=== PATIENT | female | born 1975 | race African-American/Black ===

== ENCOUNTER 2017-05-04 08:45 | Outpatient (CLI) | payer MEDICAID | END 2017-05-04 08:46 | disposition home or self-care (01) | LOC: BICMAMMO 08:45 | PROVIDERS: ATTEND Internal Medicine | DX: Z12.31 Encounter for screening mammogram for malignant neoplasm of breast (principal) | CPT/HCPCS: 77067 ==

== ENCOUNTER 2022-02-27 09:53 | Inpatient (IN) | payer BC, MEDICAID ==
[2022-02-27 10:28] LABS: #Lymphocytes 1.9 thou/uL (1.20-3.40); #Neutrophils 5.9 thou/uL (1.40-6.50); %Basophils 0.2 % (0.0-1.0); %Eosinophils 0.2 % (0.0-10.0); %Lymphocytes 21.8 % (21.0-51.0); %Monocytes 11.1 % (0.0-10.0); %Neutrophils 66.6 % (42.0-75.0); Hemoglobin 15.4 g/dL (12.0-16.0); Mean Corpuscular HGB CONC 33.4 g/dL (32.0-36.0); Mean Corpuscular Hemoglobin 35.7 pg (27.0-31.0); Mean Platelet Volume 7.7 fL (7.4-10.4); Platelet Count 256 10x3/uL (130-400); RBC Distribution Width 12.2 % (11.5-14.5); Red Blood Cell (RBC) Count 4.33 mill/uL (4.20-5.40); White Blood Cell (WBC) Count 8.9 10x3/uL (4.8-10.8)
[2022-02-27 10:49] LABS: ALT (SGPT) 22 U/L (8-55); AST (SGOT) 44 U/L (5-34); Albumin 3.9 g/dL (3.5-5.0); Alkaline Phosphatase 93 U/L (40-110); Anion Gap 14 mmol/L (10-20); BUN (Urea Nitrogen) 5 mg/dL (7.0-18.7); Bilirubin, Total 0.9 mg/dL (0.2-1.2); Calc. Creatinine Clearance 0 mL/min (70-130); Calcium 9.2 mg/dL (7.8-10.44); Carbon Dioxide 27 mmol/L (22-29); Chloride 100 mmol/L (98-107); Estimated GFR 89; Globulin 4.1 g/dL (2.4-3.5); Glucose 106 mg/dL (70-105); Potassium 3.5 mmol/L (3.5-5.1); Sodium 137 mmol/L (136-145)
[2022-02-27] MEDS ORDERED: Iopamidol-370 76% 500 ML 1 ML ONE (10:57)
[2022-02-27] MEDS ORDERED: Acetaminophen 325 MG TAB ONE (11:08)
[2022-02-27] MEDS ORDERED: cefTRIAXone\\ROCEPHIN 2 GM VIAL ONE (11:08)
[2022-02-27 11:11] LABS: MDiff Complete? YES; Macrocytosis MODERATE=16-30 cells (100X) (0-5/hpf); Platelet Morphology Comment Appears Adequate
[2022-02-27] MEDS ORDERED: Azithromycin 500 MG VIAL ONE (12:39)
[2022-02-27] MEDS ORDERED: Guaifenesin DM 100-10/5 ML UDCUP PO PRN (13:30)
[2022-02-27] MEDS ORDERED: Ondansetron PF 4 MG/2 ML Vial IVP PRN (13:32)
[2022-02-27] MEDS ORDERED: Acetaminophen 325 MG TAB PO PRN (13:32)
[2022-02-27] MEDS ORDERED: Acetaminophen 500 MG TAB PO PRN (13:34)
[2022-02-27] MEDS ORDERED: Lidocaine 5% Patch TD SCH (13:45)
[2022-02-27] MEDS ORDERED: Nicotine 14 MG PATCH ONE (14:57)
[2022-02-27] MEDS: Nicotine 14 MG PATCH TD SCH (15:05)
[2022-02-27 17:18] VITALS: BMI 23.6
[2022-02-27 19:21] LABS: HIV (1/2) Antibody/Antigen Non-Reactive (NonReactive); HIV 1/2 INDEX 0.13 S/CO (<1.00)
[2022-02-27] MEDS: Famotidine 20 MG TAB PO SCH (21:18)
[2022-02-27] MEDS: Transdermal Patch Removal TOP SCH (21:23)
[2022-02-27] MEDS: Acetaminophen 325 MG TAB PO PRN (21:28)
[2022-02-27] MEDS ORDERED: Lisinopril 10 MG TAB PO SCH (22:00)
[2022-02-27] MEDS ORDERED: Amlodipine 10 MG TAB PO SCH (22:00)
[2022-02-27] MEDS: Melatonin 3 MG TAB PO PRN (22:27)
[2022-02-28 00:20] LABS: Bacteria/HPF None Seen HPF (None Seen); Bilirubin Negative (Negative); Blood, Urine Negative (Negative); Clarity Clear (Clear); Glucose, Urine (Dipstick) Normal (Negative); Ketone, Urine 10 mg/dL (Negative); Leukocyte 75 Leu/uL (Negative); Nitrite Negative (Negative); Protein, Urine (Dipstick) Negative (Neg-Trace); RBC/HPF 0-3 HPF (0-3); Specific Gravity, Urine 1.015 (1.002-1.036); Urobilinogen Normal mg/dL (Less than 2)
[2022-02-28] MEDS: Acetaminophen 325 MG TAB PO PRN ×2 (04:53→21:35)
[2022-02-28 07:30] LABS: Mean Corpuscular HGB CONC 34.2 g/dL (32.0-36.0); Mean Corpuscular Hemoglobin 36.2 pg (27.0-31.0); Mean Platelet Volume 8.2 fL (7.4-10.4); Platelet Count 232 10x3/uL (130-400); RBC Distribution Width 12.2 % (11.5-14.5); Red Blood Cell (RBC) Count 4.44 mill/uL (4.20-5.40)
[2022-02-28 07:32] LABS: Anion Gap 15 mmol/L (10-20); BUN (Urea Nitrogen) Less than 4 mg/dL (7.0-18.7); Calc. Creatinine Clearance 99 mL/min (70-130); Calcium 9.1 mg/dL (7.8-10.44); Carbon Dioxide 24 mmol/L (22-29); Chloride 100 mmol/L (98-107); Estimated GFR 108; Glucose 143 mg/dL (70-105); Potassium 2.9 mmol/L (3.5-5.1); Sodium 136 mmol/L (136-145)
[2022-02-28] MEDS: Famotidine 20 MG TAB PO SCH ×2 (08:45→21:12)
[2022-02-28] MEDS: Enoxaparin Sodium 40 MG/0.4 ML SYRINGE SC SCH (08:46)
[2022-02-28] MEDS: Lidocaine 5% Patch TD SCH (08:46)
[2022-02-28] MEDS: Lisinopril 10 MG TAB PO SCH (08:46)
[2022-02-28] MEDS ORDERED: Amlodipine 10 MG TAB PO SCH (09:00)
[2022-02-28] MEDS ORDERED: Potassium Chloride 20 MEQ TAB PO SCH ×2 (09:00→11:00)
[2022-02-28 11:08] LABS: Band 4 % (5-11); Lymphocytes 22 % (21-51); MDiff Complete? YES; Monocytes 8 % (0-10); Neutrophil 63 % (42-75); Platelet Morphology Comment Appears Adequate; RBC Morphology Normal; Reactive Lymphocytes 2 % (0-10)
[2022-02-28] MEDS: Benzonatate 100 MG CAP PO PRN (15:06)
[2022-02-28] MEDS: Nicotine 14 MG PATCH TD SCH (15:06)
[2022-02-28] MEDS: Acetaminophen/Codeine 30-300mg Tablet PO PRN (18:47)
[2022-02-28] MEDS ORDERED: Prochlorperazine Edisylate 10 MG in Sodium Chloride 0.9% 50 ML IVPB SCH (21:00)
[2022-02-28] MEDS: diphenhydrAMINE 25 MG in Sodium Chloride 0.9% 50 ML IVPB SCH (21:10)
[2022-02-28] MEDS: Pyrazinamide 500 MG TAB PO SCH (21:12)
[2022-02-28] MEDS: Transdermal Patch Removal TOP SCH (21:15)
[2022-03-01] MEDS: diphenhydrAMINE 25 MG in Sodium Chloride 0.9% 50 ML IVPB SCH (02:39)
[2022-03-01 07:09] LABS: Anion Gap 12 mmol/L (10-20); BUN (Urea Nitrogen) 5 mg/dL (7.0-18.7); Calc. Creatinine Clearance 95 mL/min (70-130); Calcium 9.3 mg/dL (7.8-10.44); Carbon Dioxide 23 mmol/L (22-29); Chloride 102 mmol/L (98-107); Estimated GFR 104; Glucose 86 mg/dL (70-105); Magnesium 1.9 mg/dL (1.6-2.6); Potassium 5.1 mmol/L (3.5-5.1); Sodium 132 mmol/L (136-145)
[2022-03-01] MEDS: Acetaminophen/Codeine 30-300mg Tablet PO PRN ×3 (08:04→18:41)
[2022-03-01] MEDS: pyridOXINE 50 MG (B6) TAB PO SCH (08:04)
[2022-03-01] MEDS: Enoxaparin Sodium 40 MG/0.4 ML SYRINGE SC SCH (08:04)
[2022-03-01] MEDS: Famotidine 20 MG TAB PO SCH ×2 (08:04→21:09)
[2022-03-01] MEDS: Lidocaine 5% Patch TD SCH (08:05)
[2022-03-01] MEDS: Lisinopril 10 MG TAB PO SCH (08:05)
[2022-03-01] MEDS ORDERED: Pyrazinamide 500 MG TAB PO SCH ×2 (09:00)
[2022-03-01] MEDS: Rifampin 300 MG CAP PO SCH (10:23)
[2022-03-01] MEDS: Ethambutol HCl 400 MG TAB PO SCH (10:24)
[2022-03-01] MEDS: Isoniazid 100 MG TAB PO SCH (10:25)
[2022-03-01] MEDS: Nicotine 14 MG PATCH TD SCH (15:43)
[2022-03-01] MEDS ORDERED: diphenhydrAMINE 25 MG CAP PO SCH (21:00)
[2022-03-01] MEDS ORDERED: Prochlorperazine Maleate 5 MG TAB PO SCH (21:00)
[2022-03-01] MEDS: Acetaminophen 325 MG TAB PO PRN (21:11)
[2022-03-01] MEDS: Melatonin 3 MG TAB PO PRN (21:13)
[2022-03-01] MEDS: Transdermal Patch Removal TOP SCH (22:09)
[2022-03-02 06:45] LABS: ALT (SGPT) 12 U/L (8-55); AST (SGOT) 23 U/L (5-34); Albumin 3.3 g/dL (3.5-5.0); Alkaline Phosphatase 75 U/L (40-110); Anion Gap 11 mmol/L (10-20); BUN (Urea Nitrogen) 5 mg/dL (7.0-18.7); Calc. Creatinine Clearance 107 mL/min (70-130); Calcium 8.8 mg/dL (7.8-10.44); Carbon Dioxide 26 mmol/L (22-29); Chloride 100 mmol/L (98-107); Estimated GFR 110; Globulin 3.5 g/dL (2.4-3.5); Glucose 92 mg/dL (70-105); Potassium 3.9 mmol/L (3.5-5.1); Protein, Total 6.8 g/dL (6.0-8.3); Sodium 133 mmol/L (136-145)
[2022-03-02] MEDS: Rifampin 300 MG CAP PO SCH (09:16)
[2022-03-02] MEDS: pyridOXINE 50 MG (B6) TAB PO SCH (09:16)
[2022-03-02] MEDS: Pyrazinamide 500 MG TAB PO SCH (09:16)
[2022-03-02] MEDS: Ethambutol HCl 400 MG TAB PO SCH (09:16)
[2022-03-02] MEDS: Isoniazid 100 MG TAB PO SCH (09:16)
[2022-03-02] MEDS: Lisinopril 10 MG TAB PO SCH (09:17)
[2022-03-02] MEDS: Enoxaparin Sodium 40 MG/0.4 ML SYRINGE SC SCH (09:17)
[2022-03-02] MEDS: Lidocaine 5% Patch TD SCH (09:17)
[2022-03-02] MEDS: Famotidine 20 MG TAB PO SCH (09:17)
[2022-03-02] MEDS: Benzonatate 100 MG CAP PO PRN (10:28)
[2022-03-02] MEDS: Acetaminophen/Codeine 30-300mg Tablet PO PRN (10:28)
[2022-03-02] MEDS: Nicotine 14 MG PATCH TD SCH (15:19)
[2022-03-02 15:50] VITALS: BP 119/95; TEMP 98.2
[2022-03-03 08:15] LABS: QuantiFERON-TB Gold Plus POSITIVE (Negative)
== END 2022-03-02 17:00 | disposition home or self-care (01) | DRG 871 ==
LOC: ERS 09:53 → SUATTDRO 09:53 → ERHOLD 12:58 → SURG A 15:55
PROVIDERS: ADMIT Internal Medicine; ATTEND Internal Medicine
DX: A41.9 Sepsis, unspecified organism (principal); J18.9 Pneumonia, unspecified organism; A15.8 Other respiratory tuberculosis; I10 Essential (primary) hypertension; F17.210 Nicotine dependence, cigarettes, uncomplicated; Z20.822 Contact with and (suspected) exposure to COVID-19; Z88.2 Allergy status to sulfonamides; Z90.710 Acquired absence of both cervix and uterus
CPT/HCPCS: 36415; 71045; 71275; 80048; 80053; 81001; 83605; 83735; 84484; 85025; 86480; 87040; 87070; 87086; 87116; 87205; 87206; 87389; 87633; 87798; 93005; 94760; 96365; 96375; J0456; J0696; J0780; J1200; J1650; Q0164; Q9967; U0003; U0005

== ENCOUNTER 2025-01-01 13:32 | Emergency (ER) | payer BC ==
[2025-01-01] MEDS ORDERED: Metoclopramide HCl 10 MG (2 mL) VIAL ONE (14:07)
[2025-01-01] MEDS ORDERED: Ketorolac Tromethamine 30 MG (1 mL) VIAL ONE (14:07)
[2025-01-01] MEDS ORDERED: diphenhydrAMINE 50 MG/ML VIAL ONE (14:07)
[2025-01-01] MEDS ORDERED: Acetaminophen 500 MG TAB ONE (14:08)
[2025-01-01 14:14] LABS: Hematocrit 40.5 % (36.0-47.0); Hemoglobin 13.4 g/dL (12.0-16.0); Mean Corpuscular Hemoglobin 33.8 pg (27.0-31.0); Mean Corpuscular Volume 102.0 fL (78.0-98.0); Platelet Count 229 10x3/uL (130-400); Red Blood Cell (RBC) Count 3.97 mill/uL (4.20-5.40); White Blood Cell (WBC) Count 7.42 10x3/uL (4.8-10.8)
[2025-01-01 14:30] LABS: ALT (SGPT) 19 U/L (Less than 34); AST (SGOT) 27 U/L (11-34); Albumin 4.4 g/dL (3.1-4.5); Alkaline Phosphatase 51 U/L (40-110); Anion Gap 14 mmol/L (10-20); BUN (Urea Nitrogen) 14 mg/dL (7.0-18.7); Bilirubin, Total 1.1 mg/dL (0.3-1.2); Calc. Creatinine Clearance 0 mL/min (70-130); Calcium 9.8 mg/dL (7.8-10.44); Carbon Dioxide 24 mmol/L (22-29); Chloride 105 mmol/L (98-107); Globulin 3.1 g/dL (2.4-3.5); Glucose 96 mg/dL (70-105); Potassium 4.2 mmol/L (3.5-5.1); Sodium 139 mmol/L (136-145)
[2025-01-01 15:11] LABS: Anisocytosis SLIGHT = 6-15 cells HPF (0-5); Macrocytosis SLIGHT = 6-15 cells HPF (0-5); Platelet Adequacy Comment Platelets Normal; Smudge Cells 24.0 %
== END 2025-01-01 15:45 | disposition home or self-care (01) ==
LOC: ERS 13:32
DX: G43.909 Migraine, unspecified, not intractable, without status migrainosus (principal); I10 Essential (primary) hypertension; F17.210 Nicotine dependence, cigarettes, uncomplicated; Z79.899 Other long term (current) drug therapy
CPT/HCPCS: 70450; 80053; 84484; 85025; 93005; 96365; 96375; J1200; J1885; J2765